=== PATIENT | male | born 1960 | race Caucasian/White ===

== ENCOUNTER 2018-06-07 12:27 | Observation (INO) | payer OTHER ==
[~2018-06-07 12:27] MED LIST: Dexamethasone 20 MG/5 ML VIAL ONE; Glycopyrrolate 0.2 MG/ML 5 ML SYRINGE ONE; Ketorolac Tromethamine 30 MG/ML VIAL ONE; Lidocaine 1% PF 5 ML VIAL ONE; Metoclopramide HCl 10 MG/2 ML VIAL ONE; Ondansetron PF 4 MG/2 ML Vial ONE; PROPOFOL 200 MG/20 ML VIAL ONE; Rocuronium Bromide 10 MG/ML (10ML VIAL) ONE; Succinylcholine Chloride 20 MG/ML 10 ml SYRINGE FS ONE
[2018-06-07] MEDS ORDERED: Adacel (T-DAP) 0.5 ML SYRINGE ONE (13:01)
--- NOTE | 2018-06-07 13:05 | RAD ---
FEXAM:AP pelvis HISTORY: Fall with left hip pain COMPARISON: None FINDINGS:The pelvic ring is intact without evidence of fracture. There is a left femoral neck fractur e present. There are arthritic changes of the lower lumbar spine IMPRESSION:Left femoral neck fracture.
--- NOTE | 2018-06-07 13:05 | RAD ---
FExam:Left hip 2 views HISTORY: Pain. Fall. COMPARISON: None FINDINGS: Nondisplaced femoral neck fracture. IMPRESSION: Nondisplaced femoral neck fracture.
[2018-06-07] MEDS ORDERED: Morphine 4 MG/ML VIAL ONE (13:16)
[2018-06-07] MEDS ORDERED: Ondansetron PF 4 MG/2 ML Vial ONE (13:17)
[2018-06-07 13:43] LABS: #Eosinphils 0.1 thou/uL (0.0-0.7); #Lymphocytes 1.2 thou/uL (1.20-3.40); #Monocytes 0.5 thou/uL (0.11-0.59); #Neutrophils 8.5 thou/uL (1.40-6.50); %Basophils 0.5 % (0.0-1.0); %Lymphocytes 11.2 % (21.0-51.0); %Monocytes 4.8 % (0.0-10.0); %Neutrophils 82.5 % (42.0-75.0); Hemoglobin 13.6 g/dL (14.0-18.0); Mean Corpuscular HGB CONC 33.7 g/dL (32.0-36.0); Mean Corpuscular Hemoglobin 31.1 pg (27.0-31.0); Mean Corpuscular Volume 92.3 fL (78.0-98.0); Mean Platelet Volume 7.8 fL (7.4-10.4); Platelet Count 182 thou/uL (130-400); Red Blood Cell (RBC) Count 4.39 mill/uL (4.70-6.10); White Blood Cell (WBC) Count 10.3 thou/uL (4.8-10.8)
[2018-06-07 13:56] LABS: ALT (SGPT) 21 U/L (8-55); AST (SGOT) 26 U/L (5-34); Albumin 3.9 g/dL (3.5-5.0); Alkaline Phosphatase 42 U/L (40-150); Anion Gap 12 mmol/L (10-20); BUN (Urea Nitrogen) 16 mg/dL (8.4-25.7); Bilirubin, Total 0.8 mg/dL (0.2-1.2); Calc. Creatinine Clearance 0 mL/min (70-130); Calcium 9.3 mg/dL (7.8-10.44); Carbon Dioxide 25 mmol/L (22-29); Chloride 104 mmol/L (98-107); Estimated GFR-MDRD 78; Globulin 2.5 g/dL (2.4-3.5); Glucose 99 mg/dL (70-105); Potassium 3.9 mmol/L (3.5-5.1); Protein, Total 6.4 g/dL (6.0-8.3); Sodium 137 mmol/L (136-145)
[2018-06-07] MEDS ORDERED: Scopolamine 1.5 mg/72 hour Patch ONE (15:37)
[2018-06-07] MEDS ORDERED: Clindamycin/D5W 900 mg/50 ml Premix Bag ONE (15:50)
[2018-06-07] MEDS ORDERED: Fentanyl 100 MCG/2 ML VIAL ONE ×4 (16:05→18:04)
[2018-06-07] MEDS ORDERED: Fentanyl 100 MCG/2 ML VIAL SLOW IVP PRN (16:21)
[2018-06-07] MEDS ORDERED: HYDROcodone/Acetaminophen 5/325 mg Tablet PO PRN (16:21)
[2018-06-07] MEDS ORDERED: Ondansetron PF 4 MG/2 ML Vial IV PRN (16:21)
[2018-06-07] MEDS ORDERED: traMADol HCl 50 MG TAB PO PRN (16:21)
[2018-06-07] MEDS ORDERED: Communication Order-Pharmacy FS SCH (16:30)
--- NOTE | 2018-06-07 17:34 | RAD ---
INTRAOPERATIVE FLUOROSCOPY: 06/07/18 HISTORY: Left hip fracture. FINDINGS: Three intraoperative fluoroscopic views demonstrate three screws traversing a left femoral neck fract ure. Lucency is identified. Alignment is near anatomic. IMPRESSION: Fluoroscopy as above. POS: PPP
[2018-06-07] MEDS: Ketorolac Tromethamine 30 MG/ML VIAL IVP SCH ×2 (19:12→23:46)
[2018-06-07 19:26] VITALS: BMI 26.4
[2018-06-07] MEDS: Aspirin 81 mg Enteric Coated Tablet PO SCH (19:52)
[2018-06-07] MEDS: Clindamycin/D5W 900 MG in Premix Bag 1 BAG IVPB SCH (19:52)
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
[2018-06-08 05:09] LABS: #Lymphocytes 0.8 thou/uL (1.20-3.40); #Monocytes 0.3 thou/uL (0.11-0.59); #Neutrophils 7.3 thou/uL (1.40-6.50); %Basophils 0.3 % (0.0-1.0); %Eosinophils 0.2 % (0.0-10.0); %Lymphocytes 9.6 % (21.0-51.0); %Neutrophils 85.9 % (42.0-75.0); Hemoglobin 12.7 g/dL (14.0-18.0); Mean Corpuscular HGB CONC 33.3 g/dL (32.0-36.0); Mean Corpuscular Hemoglobin 32.1 pg (27.0-31.0); Mean Corpuscular Volume 96.4 fL (78.0-98.0); Mean Platelet Volume 7.6 fL (7.4-10.4); Platelet Count 180 thou/uL (130-400); RBC Distribution Width 11.7 % (11.5-14.5); Red Blood Cell (RBC) Count 3.95 mill/uL (4.70-6.10); White Blood Cell (WBC) Count 8.5 thou/uL (4.8-10.8)
[2018-06-08] MEDS: Ketorolac Tromethamine 30 MG/ML VIAL IVP SCH ×3 (05:39→13:32)
[2018-06-08] MEDS: Clindamycin/D5W 900 MG in Premix Bag 1 BAG IVPB SCH (05:39)
[2018-06-08] MEDS: Aspirin 81 mg Enteric Coated Tablet PO SCH ×2 (07:59→09:27)
[2018-06-08 15:35] VITALS: BP 126/81; TEMP 97.3
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
== END 2018-06-08 16:30 | disposition home or self-care (01) ==
LOC: SCSER 12:27 → SURG A 13:12 → ERS 13:27 → SURG A 18:26
PROVIDERS: ADMIT Orthopaedic Surgery; ATTEND Orthopaedic Surgery
PROC: 0QS734Z Reposition Left Upper Femur with Internal Fixation Device, Percutaneous Approach (ICD-10-PCS; principal; 2018-06-07)
DX: S72.002A Fracture of unspecified part of neck of left femur, initial encounter for closed fracture (principal); S80.212A Abrasion, left knee, initial encounter; S50.312A Abrasion of left elbow, initial encounter; F41.9 Anxiety disorder, unspecified; F32.9 Major depressive disorder, single episode, unspecified; Z79.899 Other long term (current) drug therapy; Z88.0 Allergy status to penicillin; Z88.2 Allergy status to sulfonamides; V18.0XXA Pedal cycle driver injured in noncollision transport accident in nontraffic accident, initial encounter
CPT/HCPCS: 36415; 72170; 76000; 80053; 85025; 86850; 86900; 86901; 90471; 90715; 96361; 96365; 96366; 96374; 96375; 96376; C1713; C1769; G0378; J1100; J1885; J2001; J2270; J2405; J2704; J2765; J3010; J3490

== ENCOUNTER 2019-02-04 15:00 | Outpatient (CLI) | payer OTHER | END 2019-02-04 15:01 | disposition home or self-care (01) | LOC: SLEEPLAB 15:00 | PROVIDERS: ATTEND Internal Medicine Critical Care Medicine | DX: G47.33 Obstructive sleep apnea (adult) (pediatric) (principal); R53.83 Other fatigue; R06.83 Snoring; G47.00 Insomnia, unspecified | CPT/HCPCS: 95806 ==

== ENCOUNTER 2022-06-23 14:40 | Emergency (ER) | payer BC ==
[2022-06-23 15:20] LABS: #Eosinphils 0.4 thou/uL (0.0-0.7); #Lymphocytes 2.2 thou/uL (1.20-3.40); #Monocytes 0.5 thou/uL (0.11-0.59); #Neutrophils 4.1 thou/uL (1.40-6.50); %Basophils 0.3 % (0.0-1.0); %Eosinophils 5.5 % (0.0-10.0); %Monocytes 6.3 % (0.0-10.0); %Neutrophils 56.8 % (42.0-75.0); Hemoglobin 15.1 g/dL (14.0-18.0); Mean Corpuscular HGB CONC 33.7 g/dL (32.0-36.0); Mean Corpuscular Hemoglobin 32.8 pg (27.0-31.0); Mean Corpuscular Volume 97.5 fl (78.0-98.0); Mean Platelet Volume 7.4 fL (7.4-10.4); Platelet Count 247 10x3/uL (130-400); RBC Distribution Width 11.8 % (11.5-14.5); Red Blood Cell (RBC) Count 4.61 mill/uL (4.70-6.10); White Blood Cell (WBC) Count 7.2 10x3/uL (4.8-10.8)
[2022-06-23 15:39] LABS: ALT (SGPT) 17 U/L (8-55); AST (SGOT) 23 U/L (5-34); Albumin 4.2 g/dL (3.4-4.8); Alkaline Phosphatase 49 U/L (40-110); Anion Gap 13 mmol/L (10-20); BUN (Urea Nitrogen) 13 mg/dL (8.4-25.7); Bilirubin, Total 0.7 mg/dL (0.2-1.2); Calc. Creatinine Clearance 0 mL/min (70-130); Calcium 9.1 mg/dL (7.8-10.44); Carbon Dioxide 26 mmol/L (23-31); Chloride 103 mmol/L (98-107); Estimated GFR 81; Globulin 2.8 g/dL (2.4-3.5); Glucose 119 mg/dL (80-115); Potassium 3.8 mmol/L (3.5-5.1); Sodium 138 mmol/L (136-145)
[2022-06-23] MEDS ORDERED: Aspirin Chewable 81 MG TAB ONE (16:16)
[2022-06-23 18:11] LABS: Troponin I Less than 0.010 ng/mL (< 0.028)
== END 2022-06-23 18:19 | disposition home or self-care (01) ==
LOC: ERS 14:40
DX: K21.9 Gastro-esophageal reflux disease without esophagitis (principal); E78.5 Hyperlipidemia, unspecified; Z79.899 Other long term (current) drug therapy
CPT/HCPCS: 36415; 71045; 80053; 83690; 83880; 84484; 85025; 93005